=== PATIENT | female | born 1960 | race Caucasian/White ===

== ENCOUNTER 2019-08-24 09:36 | Day surgery (SDC) | payer OTHER ==
[~2019-08-24] VITALS: Ht 160 cm; Wt 44.0 kg
[2019-08-24 10:08] VITALS: BP 114/70
[2019-08-24 14:35] VITALS: BP 109/63
== END 2019-08-24 14:30 | disposition home or self-care (01) ==
LOC: DS 09:36 → GI 11:30 → OR 11:30 → DS 14:30
DX: Z12.11 Encounter for screening for malignant neoplasm of colon (principal); D12.0 Benign neoplasm of cecum; Z98.890 Other specified postprocedural states
CPT/HCPCS: 45378; J1200; J1610; J2250; J2310; J3010; J3490